=== PATIENT | male | born 2000 | race Hispanic/Latino ===

== ENCOUNTER 2022-12-18 15:45 | Emergency (ER) | payer OTHER ==
[2022-12-18] MEDS ORDERED: Bacitracin 1 PK ONE (17:45)
== END 2022-12-18 18:19 | disposition home or self-care (01) ==
LOC: ERS 15:45
DX: S00.81XA Abrasion of other part of head, initial encounter (principal); S80.212A Abrasion, left knee, initial encounter; S80.211A Abrasion, right knee, initial encounter; W05.1XXA Fall from non-moving nonmotorized scooter, initial encounter
CPT/HCPCS: 70450